=== PATIENT | male | born 1985 | race Caucasian/White ===

== ENCOUNTER → 2023-04-16 | Outpatient (CLI) | payer MEDICAID, SELFPAY ==
[2023-04-16 12:11] LABS: Absolute Lymphocyte Count 2.56 X10^3/uL (0.83-4.51); Absolute Neutrophil Count 4.1 X10^3/uL (2.0-7.7); Basophil# 0.03 X10^3/uL; Basophil% 0.4 % (0-1); Eosinophil# 0.09 X10^3/uL; Eosinophils% 1.2 % (0-5); Hematocrit 47.8 % (40-54); Hemoglobin 15.9 g/dL (13.0-16.5); Lymphocyte # 2.56 X10^3/ul (0.83-4.51); Lymphocyte % 35.1 % (19-41); Mean Corp Hgb Conc 33.3 g/dL (32-36); Mean Corpuscular Hgb 30.2 pg (27.0-32.0); Mean Corpuscular Volume 90.9 fL (80-94); Mean Platelet Vol. 11.4 fl (6.2-12.0); Monocyte# 0.53 X10^3/uL; Monocyte% 7.3 % (0-10); NRBC Flagged by Analyzer 0 % (0-5); Neutrophil # 4.07 X10^3/uL (2.7-7.7); Neutrophil % 55.9 % (47-70); Platelet Count 228 K/mm3 (150-450); RBC Distribution Width CV 13.2 % (11.6-14.6); RBC Distribution Width SD 43.8 fl (35.1-43.9); Red Blood Count 5.26 M/mm3 (4.6-6.2); White Blood Count 7.3 K/mm3 (4.4-11.0)
[2023-04-16 12:48] LABS: ALB/GLOB Ratio 1.1 RATIO (0.9-2.4); AST(SGOT) 28 U/L (15-37); Alanine Aminotransfer ALT/SGPT 47 U/L (16-61); Alkaline Phosphatase 94 U/L (45-117); Anion Gap 6 (5-15); BUN 14 mg/dL (7-18); BUN/Creat Ratio 13.9 RATIO (10-20); Calcium,Total 9.2 mg/dL (8.5-10.1); Chloride 107 mmol/L (98-107); Cholesterol 191 mg/dL (200); Creatinine, Serum 1.01 mg/dL (0.70-1.30); EST Glomerular Filtration Rate 88 mL/min (>60); Est Glom Filt Rate - Afr Amer 106 mL/min (>60); Globulin 3.6 g/dL (2.2-4.2); Glucose 111 mg/dL (74-106); High Density Lipoprotein 49 mg/dL; Potassium 4.2 mmol/L (3.5-5.1); Protein, Total 7.6 g/dL (6.4-8.2); Sodium Level 139 mmol/L (136-145); Triglycerides 153 mg/dL; Very Low Density Lipoprotein 31 mg/dL (5-40)
--- NOTE | 2023-04-16 15:55 | RAD_ITS ---
INDICATION: Lumbar radiculopathy EXAMINATION/TECHNIQUE: X-RAY - XR Spine Lumbar 4 Views COMPARISON: CT August 30, 2008. FINDINGS: VERTEBRAE: Preserved vertebral body height. No fracture. No spondylolisthesis. Preservation of the normal lumbar lordosis. Mild bilateral L5-S1 facet arthropathy. DISCS: L5-S1 disc height loss. INCLUDED ABDOMEN: Included bowel gas pattern is non-obstructive. RAD/L/S Spine Min 4 Views IMPRESSION: Spondylosis at L4-5 with mild facet arthropathy and degenerative disc height loss. MRI could further assess for spinal canal or neural foraminal stenosis as clinically indicated. Electronically Signed: Ahsan Hi MD at 10:33 EST ,
== END | disposition home or self-care (01) ==
PROVIDERS: PCP Internal Medicine; Referring Provider Internal Medicine; Visit Provider Internal Medicine
DX: Z00.00 Encounter for general adult medical examination without abnormal findings (principal); M54.16 Radiculopathy, lumbar region; Z13.6 Encounter for screening for cardiovascular disorders
CPT/HCPCS: 36415; 72110; 80053; 80061; 85025

== ENCOUNTER 2023-06-25 18:44 | Emergency (ER) | payer MEDICAID, SELFPAY ==
[2023-06-25 18:44] VITALS: BP 162/107; PULSE 83; RESP 16; TEMP 36.8; O2SAT 98; BMI 28.4
--- NOTE | 2023-06-25 18:50 | EKG12_ITS ---
Test Reason : CP Blood Pressure : / mmHG Vent. Rate : 076 BPM Atrial Rate : 076 BPM P-R Int : 188 ms QRS Dur : 100 ms QT Int : 380 ms P-R-T Axes : 038 004 022 degrees QTc Int : 427 ms Normal sinus rhythm with sinus arrhythmia Septal infarct , age undetermined Abnormal ECG Confirmed by Abdi Phillips ([id number]), editorial intern EMILIE HUGGINS ([id number]) on 06/28/2023 8:56:18 AM Referred By: Maricarmen Confirmed By:Abdi Phillips
[2023-06-25 19:06] LABS: Absolute Lymphocyte Count 3.58 X10^3/uL (0.83-4.51); Absolute Neutrophil Count 4.6 X10^3/uL (2.0-7.7); Basophil# 0.05 X10^3/uL; Basophil% 0.6 % (0-1); Eosinophils% 1.1 % (0-5); Hematocrit 44.4 % (40-54); Hemoglobin 15.6 g/dL (13.0-16.5); Lymphocyte # 3.58 X10^3/ul (0.83-4.51); Lymphocyte % 39.8 % (19-41); Mean Corp Hgb Conc 35.1 g/dL (32-36); Mean Corpuscular Hgb 30.8 pg (27.0-32.0); Mean Corpuscular Volume 87.6 fL (80-94); Mean Platelet Vol. 11.1 fl (6.2-12.0); Monocyte# 0.62 X10^3/uL; Monocyte% 6.9 % (0-10); NRBC Flagged by Analyzer 0 % (0-5); Neutrophil # 4.62 X10^3/uL (2.7-7.7); Neutrophil % 51.4 % (47-70); Platelet Count 215 K/mm3 (150-450); RBC Distribution Width SD 40.7 fl (35.1-43.9); Red Blood Count 5.07 M/mm3 (4.6-6.2)
[2023-06-25] MEDS: Aspirin 81 MG TAB.CHEW 324 MG PO (19:10)
--- NOTE | 2023-06-25 19:10 | RAD_ITS ---
STUDY: X-RAY CHEST REASON FOR EXAM: Male, 37 years old. chest pain TECHNIQUE: Single AP portable view of the chest. COMPARISON: None. FINDINGS: The lungs are clear and expanded. There is no demonstrated pleural abnormality. Normal size heart. Normal mediastinum and danuta. Normal visualized pulmonary arteries. Normal visualized aortic arch and descending thoracic aorta. Normal visualized thoracic spine. Normal visualized ribs, clavicles, and shoulders. There is no demonstrated abnormality of the visualized soft tissue structures of the upper abdomen. RAD/Chest 1 View (Portable) IMPRESSION: Normal x-ray examination of the chest. Electronically Signed: Ulises Brock MD at 19:19 EDT ,
[2023-06-25 19:26] LABS: Anion Gap 7 (5-15); BUN 15 mg/dL (7-18); BUN/Creat Ratio 14.4 RATIO (10-20); Calcium,Total 9.3 mg/dL (8.5-10.1); Chloride 104 mmol/L (98-107); Creatinine, Serum 1.04 mg/dL (0.70-1.30); EST Glomerular Filtration Rate 85 mL/min (>60); Est Glom Filt Rate - Afr Amer 102 mL/min (>60); Estimated Creatinine Clearance 108.71 ml/min; Glucose 107 mg/dL (74-106); Potassium 3.5 mmol/L (3.5-5.1); Sodium Level 138 mmol/L (136-145); Troponin-I HS (w/2H Reflex) 5 pg/mL (3.0-78.0)
[2023-06-25 19:50] VITALS: BP 126/87; PULSE 67; RESP 16; O2SAT 97
[2023-06-25 20:00] VITALS: BP 123/92; PULSE 72; RESP 16; O2SAT 97
--- NOTE | 2023-06-25 20:22 | ED.VIS.CHEST ---
HPI History of Present Illness Chief Complaint: Chest Pain Narrative Narrative: 37-year-old male presenting with chest pain. He states that he does not have any cardiac issues. No pulmonary issues. Patient states the pain started yesterday on the left side of his chest that was one focal area of point to his finger. 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 Patient states that he had the pain started yesterday and seem to be going away and then today earlier when he was doing work he noticed it came back. States it was worse with waking and he noticed that when he got in a car to drive to apple picker some sand today the pain got worse. He denies lightheadedness, dizziness, shortness of breath. No nausea. [facility] Medical History Seborrheic dermatitis Sinus headache Screening for cardiovascular condition Health care maintenance Lumbar radiculopathy Migraine Headache Bone fracture Home Medications ?Medication ?Instructions ?Recorded ?Last Taken ?Type ketoconazole 2 % shampoo 1 applic topical 2XW #120 mL 04/16/23 Unknown Rx fluticasone propionate 50 2 spray intranasal DAILY #16 grams 04/19/23 Unknown Rx mcg/actuation nasal spray,suspension (Flonase Allergy Relief) Allergy/AdvReac Type Severity Reaction Status Date / Time No Known Allergies Allergy Verified 06/25/23 18:45 Family History Mother Anxiety Mental disorder Grandmother , age 75 Myocardial infarction Grandfather , age 62 No problems noted. 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 ) history of recent travel: No Smoking Status: Current every day smoker tobacco type: cigarettes alcohol intake: current alcohol intake frequency: other caffeine: Yes (coffee a day/ 3 sodas per day/ working cutting back ) what type of physical activity do you participate in: none and walking do you feel safe at home: Yes ROS ROS ED Constitutional Constitutional ED: Denies chills, fever(s) or sweats Eyes Eyes: Denies blurry vision or change in vision ENT ENT ED: Denies ear pain or sore throat Cardiovascular Cardiovascular: Reports chest pain; Denies palpitations or racing heartbeat Respiratory/Chest Respiratory/Chest: Denies cough, dyspnea or sputum Gastrointestinal Gastrointestinal: Denies abdominal pain, constipation, diarrhea, nausea or vomiting Genitourinary Genitourinary ED: Denies dysuria, hematuria or urinary frequency Musculoskeletal Musculoskeletal: Denies arthralgias, myalgias or neck pain Integumentary Denies abscess, Abrasions or rash Neurologic Neurologic: Denies headache(s), paresthesias or weakness Psychiatric Psychiatric: Denies anxiety, depression, suicidal ideation or suicidal thoughts Endocrine Endocrinology: Denies polydipsia or polyuria EXAM Physical Exam Const Vital Signs: 06/25/23 18:44 06/25/23 19:50 06/25/23 19:50 Temperature 98.2 F Temperature Source Temporal Pulse Rate 83 67 Respiratory Rate 16 16 Respiratory Effort Blood Pressure 162/107 H 126/87 H Blood Pressure Mean 125 100 Pulse Ox 98 97 Oxygen Delivery Method Room Air Room Air Room Air 06/25/23 19:51 06/25/23 20:00 06/25/23 21:10 Temperature Temperature Source Pulse Rate 72 64 Respiratory Rate 16 17 Respiratory Effort Normal Non-Labored Blood Pressure 123/92 H 127/76 H Blood Pressure Mean 102 93 Pulse Ox 97 97 Oxygen Delivery Method Room Air Room Air 06/25/23 21:23 Temperature 97.1 F L Temperature Source Pulse Rate 69 Respiratory Rate 17 Respiratory Effort Blood Pressure 127/76 H Blood Pressure Mean 93 Pulse Ox 96 Oxygen Delivery Method Positive well nourished General Appearance ED: NAD HEENT Reports moist mucous membranes normocephalic and atraumatic Eyes PERRL Neck no lymphadenopathy Chest Wall inspection of chest normal Chest Narrative: No reproducible chest wall tenderness Resp normal respiratory effort and clear to auscultation bilaterally Auscultation: Negative for rales, rhonchi or wheezes Cardio regular rate and regular rhythm Neuro oriented x3 and CN's II-XII intact bilaterally Sensorium / Orientation: awake and alert Motor Exam: strength 5/5 throughout Psych mental status grossly normal Skin no rashes or lesions noted Heart Score History: Slightly/Non-Suspicious ECG: Normal Age: </= 45 years Risk Factors: 1 or 2 Risk Factors Troponin: </= Normal Limit Score: 1 MDM MDM MDM Narrative Medical decision making narrative: Patient presenting with chest pain. He states that sharp in 1 area initially and then started to spread across his sternum and up the midline and under his right ribs. He states he was worse with doing work today and denies any lightheadedness, dizziness, nausea. He is able to focally point to the worst area of pain with 1 finger in the left upper chest. He states that moving his arms around hurts worse. Differential does include ACS, costochondritis, pneumonia, muscle strain. Considered PE although patient is PERC negative. Obtain a CBC to assess white blood cell count, hemoglobin, platelets. BMP to assess renal function, electrolytes, glucose. High-sensitivity troponin EKG to assess for ischemia/dysrhythmia. Chest x-ray to rule out pneumonia or other acute process. Patient states he does not want anything stronger for pain but was amenable to Toradol. CBC shows normal white blood cell count 9.0 and hemoglobin is 15.6. Platelets are receiving pain. Renal function electrolytes normal. High-sensitivity troponin is 5 and delta troponin is 4. I do believe that patient likely has costochondritis based on his send I recommended NSAIDs for home. Return precautions were discussed. He will follow-up with his primary care physician. Impression: 1. Chest pain 2. Costochondritis Lab Data Attestation: I reviewed the patient's lab results. Labs: Laboratory Results - last 24 hr 06/25/23 06/25/23 18:50 20:46 WBC 9.0 RBC 5.07 Hgb 15.6 Hct 44.4 MCV 87.6 MCH 30.8 MCHC 35.1 RDW Std Deviation 40.7 RDW Coeff of Lisandro 13.0 Plt Count 215 MPV 11.1 Immature Gran % (Auto) 0.200 Neut % (Auto) 51.4 Lymph % (Auto) 39.8 [place] % (Auto) 6.9 Eos % (Auto) 1.1 Baso % (Auto) 0.6 Absolute Neuts (auto) 4.6 Absolute Lymphs (auto) 3.58 Nucleated RBC % 0 Sodium 138 Potassium 3.5 Chloride 104 Carbon Dioxide 27.0 Anion Gap 7 BUN 15 Creatinine 1.04 Estim Creat Clear Calc 108.71 Est GFR (MDRD) Af Amer 102 Est GFR (MDRD) Non-Af 85 BUN/Creatinine Ratio 14.4 Glucose 107 H Calcium 9.3 Troponin I High Sens 5 4 Discharge Plan Triage Chief Complaint: Chest Pain ED Provider: Ivan Craft Dx/Rx/DC Orders Instructions: ED Chest Pain, Noncardiac, ED Chest Wall Pain, Costochondritis Prescriptions: No Action ketoconazole 2 % shampoo 1 applic topical 2XW Qty: 120 3RF fluticasone propionate [Flonase Allergy Relief] 50 mcg/actuation spray,suspension 2 spray intranasal DAILY Qty: 16 2RF Rx Instructions: administer into each nostril Primary Care Provider: Hugo Lopez Referrals: Hugo Lopez MD [Primary Care Provider] - Print Language: Bulgarian Disposition Disposition: Home, Self Care Discharge Date/Time: 06/25/23 21:32
[2023-06-25] MEDS: Ketorolac 15 MG/ML Vial IV (20:36)
[2023-06-25 20:58] LABS: Reflex Troponin-HS? (from REC) Y
[2023-06-25 21:10] VITALS: BP 127/76; PULSE 64; RESP 17; O2SAT 97
[2023-06-25 21:23] VITALS: BP 127/76; PULSE 69; RESP 17; TEMP 36.2; O2SAT 96
[2023-06-25 21:26] LABS: Troponin-I HS 4 pg/mL (3.0-78.0)
== END 2023-06-25 21:32 | disposition home or self-care (01) ==
PROVIDERS: Emergency Provider Student in an Organized Health Care Education/Training Program; PCP Internal Medicine; Visit Provider Student in an Organized Health Care Education/Training Program
DX: R07.9 Chest pain, unspecified (principal); M94.0 Chondrocostal junction syndrome [Tietze]; F17.210 Nicotine dependence, cigarettes, uncomplicated
CPT/HCPCS: 71045; 80048; 84484; 85025; 93005; 96374; 99284; A4216